=== PATIENT | female | born 1980 | race Two or more races ===

== ENCOUNTER 2023-08-18 14:09 | Emergency (ER) | payer SELFPAY ==
[~2023-08-18] VITALS: Ht 165.1 cm; Wt 70.0 kg
[2023-08-18 14:28] VITALS: TEMP 97.6
[2023-08-18] MEDS ORDERED: ONDANSETRON HCL 4 MG/2 ML VIAL IVP ONE (14:45)
[2023-08-18] MEDS ORDERED: HYDROmorphone HCL 2 MG/ML SYRINGE IVP ONE (14:45)
[2023-08-18] MEDS ORDERED: HYDROCODONE/ACETAMINOPHEN 5-325 MG TABLET PO ONE (18:00)
[2023-08-18] MEDS ORDERED: IBUP-1554 PO (19:12)
[2023-08-18] MEDS ORDERED: HYDR-4723 PO (19:12)
[2023-08-18 19:52] VITALS: BP 128/79; PULSE 84; RESP 22
[2023-08-20] MEDS ORDERED: HYDR-4723 PO (08:46)
== END 2023-08-18 20:30 | disposition home or self-care (01) ==
LOC: EDBD 14:09 → EMS 14:09
DX: S82.302A Unspecified fracture of lower end of left tibia, initial encounter for closed fracture (principal); Z86.12 Personal history of poliomyelitis; Z90.49 Acquired absence of other specified parts of digestive tract; X50.1XXA Overexertion from prolonged static or awkward postures, initial encounter; Y93.89 Activity, other specified; Y92.89 Other specified places as the place of occurrence of the external cause; Y99.8 Other external cause status
CPT/HCPCS: 99284; 96374; 29515; 96375; 73610; 81025; J1170; J2405; 29540

== ENCOUNTER 2025-06-24 13:27 | Emergency (ER) | payer MEDICAID, OTHER ==
[~2025-06-24] VITALS: Ht 165.1 cm; Wt 74.5 kg
[~2025-06-24 13:27] MED LIST: HYDR-4062 PO; IBUP-1554 PO
[2025-06-24 13:34] VITALS: BP 122/84; PULSE 119; RESP 18; TEMP 98.2; O2SAT 98
[2025-06-24] MEDS ORDERED: OMEP-148 PO (13:42)
[2025-06-24 14:18] LABS: PLATELET COUNT (AUTO) 303 K/uL (150-450); RED BLOOD CELL COUNT(AUTO) 4.69 MIL/uL (4.00-5.20); RED CELL DISTRIBUTION WIDTH 14.9 % (11.5-14.5); WHITE BLOOD COUNT (AUTO) 7.4 K/uL (4.5-11.0)
[2025-06-24 14:26] LABS: CALCIUM, TOTAL 9.3 mg/dL (8.8-10.5); CREATININE 0.59 mg/dL (0.60-1.30); GLOMERULAR FILTR. RATE CALC > 60 mL/min (>60); GLUCOSE,RANDOM 93 mg/dL (70-110); SODIUM SERUM 137 mmol/L (136-145); UREA NITROGEN, BLOOD 16 mg/dL (7-18)
[2025-06-24 14:37] LABS: HCG,QUANTITATIVE < 1 mIU/mL (0-6)
[2025-06-24 15:14] LABS: APPEARANCE,URINE CLEAR (CLEAR); GLUCOSE, URINE (UA) NEGATIVE (NEGATIVE); LEUKOCYTE ESTERASE ,URINE MODERATE (NEGATIVE); NITRATE,URINE NEGATIVE (NEGATIVE); OCCULT BLOOD,URINE TRACE (NEGATIVE); SPECIFIC GRAVITIY, URINE 1.006 (1.003-1.030)
[2025-06-24 15:28] LABS: SQUAMOUS EPITHELIAL CELL,UR Few /LPF (None Seen)
[2025-06-24] MEDS ORDERED: POLY17PO62 PO (16:26)
[2025-06-24] MEDS ORDERED: FAMO40TA76 PO (16:27)
== END 2025-06-24 16:41 | disposition home or self-care (01) ==
LOC: EMS 13:27
DX: K21.9 Gastro-esophageal reflux disease without esophagitis (principal); R10.2 Pelvic and perineal pain; Z90.49 Acquired absence of other specified parts of digestive tract; Z86.12 Personal history of poliomyelitis; Z79.899 Other long term (current) drug therapy
CPT/HCPCS: 74018; 80048; 81001; 83690; 84702; 85025; 87086; 93005; 99285; 36415-L1; 36415-TC